=== PATIENT | female | born 1950 | race Caucasian/White ===

== ENCOUNTER 2018-02-09 20:23 | Emergency (ER) | payer MEDICARE ==
[2018-02-09 21:53] LABS: Hemoglobin 14.9 g/dL (12.0-16.0); Mean Corpuscular HGB CONC 33.4 g/dL (32.0-36.0); Mean Corpuscular Hemoglobin 29.3 pg (27.0-31.0); Mean Corpuscular Volume 87.9 fL (78.0-98.0); Mean Platelet Volume 6.9 fL (7.4-10.4); Platelet Count 347 thou/uL (130-400); RBC Distribution Width 12.5 % (11.5-14.5); Red Blood Cell (RBC) Count 5.07 mill/uL (4.20-5.40); White Blood Cell (WBC) Count 17.2 thou/uL (4.8-10.8)
[2018-02-09 21:54] LABS: Band 6 % (5-11); Lymphocytes 2 % (21-51); MDiff Complete? YES; Monocytes 8 % (0-10); Neutrophil 84 % (42-75); PLT Morphology Comment Appears Adequate
--- NOTE | 2018-02-09 22:06 | RAD ---
RADIOGRAPH CHEST 1 VIEW: 02/09/18 HISTORY: 67-year-old female with abnormal breath sounds: Left lower lobe crackles. Dyspnea. FINDINGS: There is no air space density or pulmonary edema. The lateral costophrenic angles are sharp. This st udy is labeled as supine, which would make it insensitive for pneumothorax detection. IMPRESSION: No acute pulmonary findings. zak [] POS: [facility]
--- NOTE | 2018-02-09 22:09 | RAD ---
RADIOGRAPH PELVIS ONE VIEW: 02/09/18 HISTORY: 67-year-old female status post acute pelvic traumatic injury from fall. FINDINGS: No displaced fracture is identified. However, the diffuse osteopenia and overlying bowel gas and stoo l could obscure a fracture, especially involving the sacrum. There is no dislocation of the hips. IMPRESSION: No fracture identified. POS: [facility]
[2018-02-09 22:10] LABS: Bilirubin Small (Negative); Blood, Urine Moderate (Negative); Clarity CLEAR (Clear); Glucose, Urine (Dipstick) 100 mg/dL (Negative); Leukocyte Negative (Negative); Nitrite Negative (Negative); Protein, Urine (Dipstick) 100 mg/dL (Neg-Trace); Specific Gravity, Urine 1.034 (1.002-1.036); pH, Urine 5.5 (5.0-9.0)
[2018-02-09 22:12] LABS: INR-International Normal Ratio 1.1; PTT 26.9 SEC (22.9-36.1); Prothrombin Time 13.8 SEC (12.0-14.7)
--- NOTE | 2018-02-09 22:14 | CT ---
CT OF CERVICAL SPINE PERFORMED WITHOUT CONTRAST ENHANCEMENT: 02/09/18 HISTORY: Neck pain status post fall. FINDINGS: The vertebral bodies are normal in height. There is disc narrowing at C5-6 and C6-7. Very minimal ant erolisthesis of C5 on C6 is present. There are degenerative facet changes noted. There is no significant canal stenosis and there is no CT evidence of fracture. There are emphysemato us appearing lung changes. IMPRESSION: No CT evidence of fracture of the cervical spine. POS: [facility]
[2018-02-09 22:18] LABS: Bacteria/HPF None Seen HPF (None Seen); RBC/HPF 0-3 HPF (0-3)
[2018-02-09 22:20] LABS: Pathc Cast-AUWi Flag 7.55 (0-2.49)
[2018-02-09 22:27] LABS: Hyaline Casts/LPF 4-6 HYALINE CAST LPF (0-3 Hyaline)
[2018-02-09 22:37] LABS: ALT (SGPT) 23 U/L (8-55); AST (SGOT) 28 U/L (5-34); Albumin 3.9 g/dL (3.4-4.8); Alkaline Phosphatase 60 U/L (40-150); Anion Gap 14 mmol/L (10-20); BUN (Urea Nitrogen) 23 mg/dL (9.8-20.1); Bilirubin, Total 0.3 mg/dL (0.2-1.2); Calc. Creatinine Clearance 0 mL/min (70-130); Calcium 9.7 mg/dL (7.8-10.44); Carbon Dioxide 21 mmol/L (23-31); Chloride 102 mmol/L (98-107); Estimated GFR-MDRD 71; Globulin 3.8 g/dL (2.4-3.5); Glucose 126 mg/dL (80-115); Potassium 3.2 mmol/L (3.5-5.1); Protein, Total 7.7 g/dL (6.0-8.3); Sodium 134 mmol/L (136-145)
[2018-02-09] MEDS ORDERED: Potassium Chloride 40 MEQ in Sodium Chloride 0.9% 500 ML IVPB SCH (23:15)
--- NOTE | 2018-02-09 23:18 | CT ---
CT BRAIN NONCONTRAST: DATE: 02/09/18 TIME: 9:33 p.m. HISTORY: 67-year-old female status post acute head trauma from fall. COMPARISON: 11/04/16 FINDINGS: Again noted is the large, confluent region of encephalomalacia and gliosis involving the left lateral frontal and parietal lobes, consistent with a large old infarction in the left MCA territory. This i s contiguous with a moderate size left parasagittal region of encephalomalacia and gliosis representi ng an old infarction in the left MASOUD territory. There is a small to moderate sized patchy region of right lower anterolateral frontal encephalomalaci a and gliosis, consistent with an old infarction in the right MCA territory. There is left sided Wallerian degeneration of the brainstem associated with the large left MCA territ ory infarction. There is a tiny old lacunar infarction involving the body of the right caudate nucleu s, which is not definitely identified on the previous CT. There is a small region of encephalomalacia and gliosis in the right temporoparietal junction laterally, consistent with a small old infarction in the right MCA territory. There is a small to moderate sized patchy region of encephalomalacia and gliosis involving the left o ccipital lobe contiguous with posteromedial left temporal lobe, consistent with an old infarction in the left [employer] territory. There is no acute intra-axial or extra-axial hemorrhage. No mass effect, midline shift or extra-axial fluid collection. No acute calvarial fracture. IMPRESSION: 1. No acute intracranial findings. 2. Multiple old infarctions in multiple vascular territories (left middle cerebral artery, left posterior cerebral artery, left anterior cerebral artery, right middle cerebral artery. 3. The largest is a large old infarction in the left middle cerebral artery territory, with asso ciated Wallerian degeneration of the left side of the brainstem. DENICE Gan POS: [facility]
[2018-02-09] MEDS ORDERED: Potassium Chloride 20 MEQ TAB ONE (23:49)
== END 2018-02-10 00:17 | disposition home or self-care (01) ==
LOC: ERS 20:23
DX: E87.6 Hypokalemia (principal); D72.829 Elevated white blood cell count, unspecified; R79.89 Other specified abnormal findings of blood chemistry; J44.9 Chronic obstructive pulmonary disease, unspecified; Z87.891 Personal history of nicotine dependence; Z86.73 Personal history of transient ischemic attack (TIA), and cerebral infarction without residual deficits
CPT/HCPCS: 51701; 70450; 71045; 72125; 72170; 80053; 81003; 81015; 83880; 84484; 85025; 85610; 85730; 87804; 93005; 96365; A4353; J3480; J7050

== ENCOUNTER 2018-05-31 17:47 | Inpatient (IN) | payer MEDICARE ==
[~2018-05-31 17:47] MED LIST: ISOVUE-370 76%-LOCM 1 ML ONE; Iopamidol 370 76% 50 ML VIAL FS ONE; PHENYLEPHRINE-NS 100 MCG/ML 10 ML SYRINGE ONE; Rocuronium Bromide 10 MG/ML (10ML VIAL) ONE; ePHEDrine 50 MG/ML VIAL ONE
[2018-05-31 18:06] LABS: #Basophils 0.1 thou/uL (0.0-0.2); #Eosinphils 0.4 thou/uL (0.0-0.7); #Lymphocytes 3.5 thou/uL (1.20-3.40); #Monocytes 0.9 thou/uL (0.11-0.59); #Neutrophils 9.1 thou/uL (1.40-6.50); %Basophils 0.6 % (0.0-1.0); %Lymphocytes 24.9 % (21.0-51.0); %Monocytes 6.1 % (0.0-10.0); %Neutrophils 65.5 % (42.0-75.0); Hemoglobin 15.6 g/dL (12.0-16.0); Mean Corpuscular HGB CONC 32.4 g/dL (32.0-36.0); Mean Corpuscular Hemoglobin 29.4 pg (27.0-31.0); Mean Corpuscular Volume 90.6 fL (78.0-98.0); Mean Platelet Volume 6.6 fL (7.4-10.4); Platelet Count 445 thou/uL (130-400); RBC Distribution Width 12.9 % (11.5-14.5); Red Blood Cell (RBC) Count 5.33 mill/uL (4.20-5.40); White Blood Cell (WBC) Count 13.9 thou/uL (4.8-10.8)
[2018-05-31 18:12] LABS: PTT 24.7 SEC (22.9-36.1); Prothrombin Time 13.2 SEC (12.0-14.7)
[2018-05-31] MEDS ORDERED: Adenosine 6 MG/2 ML VIAL ONE (18:17)
[2018-05-31 18:27] LABS: ALT (SGPT) 18 U/L (8-55); AST (SGOT) 18 U/L (5-34); Albumin 4.1 g/dL (3.4-4.8); Alkaline Phosphatase 73 U/L (40-150); Anion Gap 15 mmol/L (10-20); BUN (Urea Nitrogen) 19 mg/dL (9.8-20.1); Bilirubin, Total 0.3 mg/dL (0.2-1.2); CK (CPK) 66 U/L (29-168); Calc. Creatinine Clearance 0 mL/min (70-130); Calcium 9.8 mg/dL (7.8-10.44); Carbon Dioxide 23 mmol/L (23-31); Chloride 105 mmol/L (98-107); Estimated GFR-MDRD 66; Globulin 3.5 g/dL (2.4-3.5); Glucose 132 mg/dL (80-115); Potassium 4.3 mmol/L (3.5-5.1); Protein, Total 7.6 g/dL (6.0-8.3); Sodium 139 mmol/L (136-145)
[2018-05-31] MEDS ORDERED: Rocuronium Bromide 10 MG/ML (10ML VIAL) ONE ×2 (18:29→18:30)
[2018-05-31] MEDS ORDERED: Ketamine 50 MG/ML (10ML VIAL) ONE (18:36)
[2018-05-31 18:51] LABS: Bilirubin Negative (Negative); Blood, Urine Negative (Negative); Clarity CLEAR (Clear); Glucose, Urine (Dipstick) Negative (Negative); Leukocyte Negative (Negative); Nitrite Negative (Negative); Protein, Urine (Dipstick) Negative (Neg-Trace); Urobilinogen 0.2 mg/dL (0.2-1.0)
[2018-05-31 18:55] LABS: Specific Gravity, Urine 1.055 (1.002-1.036)
--- NOTE | 2018-05-31 18:56 | CT ---
CT HEAD NONCONTRAST: History: Altered mental status. Eye deviation. Comparison: 02-09-18 FINDINGS: No evidence of acute intracranial hemorrhage. Old left MCA infarct, old right frontal infarct, and pr ominent ischemic small vessel disease are similar in appearance to the prior study. No mass effect or shift of midline structures. IMPRESSION: 1. Old infarction with chronic type findings are stable. No acute intracranial abnormalities are demo nstrated. Findings were called to Dr. Whitaker in the Emergency Department at 1802 hours. Code CR POS: [facility]
[2018-05-31] MEDS ORDERED: Fentanyl 100 MCG/2 ML VIAL ONE (19:00)
--- NOTE | 2018-05-31 19:27 | CT ---
CT ARTERIOGRAM NECK WITH IV CONTRAST AND 3D MIP IMAGING CT ARTERIOGRAM HEAD WITH IV CONTRAST AND 3D MIP IMAGING CT BRAIN WITH IV CONTRAST: History: Altered mental status. Right eye deviation. Comparison: 12-02-16 FINDINGS: There is abrupt termination of contrast flow within the M1 segment of the right middle cerebral arter y. Contrast within the more peripheral arterial branches is likely via collateral flow. Good flow int o the anterior and posterior cerebral systems. [place] is intact. Normal branching of the great vessels at the aortic arch with aortic calcification. Calcification at each carotid bifurcation with approximately 50% stenosis in the proximal left ICA and no significant stenosis on the right. Old left MCA infarct and prominent chronic ischemic small vessel disease are again demonstrated. No e nhancing masses are evident. IMPRESSION: 1. Occlusion of the right MCA M1 segment with collateral flow peripherally. 2. Atherosclerosis with mild stenosis of the proximal left internal carotid artery. Findings were called to Dr. Whitaker in the Emergency Department at 1817 hours. Code CR POS: [facility]
[2018-05-31] MEDS ORDERED: Heparin 10,000 UNITS/1 ML VIAL ONE (19:35)
[2018-05-31] MEDS ORDERED: Midazolam HCl 2 mg/2 ml Vial ONE (19:45)
--- NOTE | 2018-05-31 19:51 | PRG ---
DATE OF SERVICE: SUBJECTIVE: Ms. Hawk is a 67-year-old female with history of prior CVA. She presented today to the emergency department with left hemiparesis and altered mental status. She subsequently became less responsive and hemodynamically unstable requiring intubation.She had a noncontrast head CT performed, which was negative for hemorrhage. She had a CT angiogram performed, which revealed occlusion of the right middle cerebral artery at the M1 division. She is approximately 3 hours out from onset. This was apparently witnessed by her daughter. The ER doctor did not feel she was candidate for tPA. I have activated the director of laboratory operations team and we are now awaiting arrival to the angiogram suite to perform angiography with potential for mechanical thrombectomy. Job ID: [id number] MTDD
--- NOTE | 2018-05-31 20:29 | RAD ---
CHEST ONE VIEW: History: Intubation. Comparison: 02-09-18, 05-31-18 FINDINGS: Cardiac silhouette is magnified by projection. Pulmonary vasculature is upper limits of normal. Media stinum is midline. The tip of an endotracheal catheter overlies the thoracic inlet. Nasogastric tube now descends to the abdomen off the inferior margin of the image. No evidence of pneumothorax. Defibr illator pads remain over the right upper chest. IMPRESSION: Endotracheal catheter is in good radiographic position. POS: [facility]
[2018-05-31] MEDS ORDERED: Mag-Al 1200 mg/1200 mg/30 ML UDCUP PO PRN (20:31)
[2018-05-31] MEDS ORDERED: Labetalol HCl 100 MG/20 ML VIAL SLOW IVP PRN (20:31)
[2018-05-31] MEDS ORDERED: niCARdipine HCl 25 MG in Sodium Chloride 0.9% 250 ML 240 ML IVPB PRN (20:31)
[2018-05-31] MEDS ORDERED: Acetaminophen 325 MG TAB PO PRN (20:31)
[2018-05-31 21:46] LABS: Actual Bicarbonate (HCO3a) 20.5 mEq/L (22-28); Base Excess (BEa) -4.6 mEq/L (-2.0 to +3.0); Calcium, Ionized 1.08 mmol/L (1.12-1.30); Hemoglobin (Hb) 14.5 g/dL (12.0-16.0); O2 Tension (PaO2) 99.1 mmHg (> 80.0); Potassium - ABG Lab 3.56 mmol/L (3.70-5.30); pH, Arterial 7.35 (7.35-7.45)
[2018-05-31 21:49] LABS: Puncture Site LRA
[2018-06-01 06:39] LABS: Cardiac Risk 3.4 (Less than 4.5)
[2018-06-01] MEDS: Atorvastatin Calcium 40 MG TAB PO SCH ×2 (07:36→21:42)
[2018-06-01] MEDS: Communication Order-Pharmacy FS SCH ×2 (07:36→21:37)
[2018-06-01] MEDS ORDERED: Aspirin 325 mg Enteric Coated Tablet PO SCH ×2 (09:00→21:00)
[2018-06-01] MEDS ORDERED: Aspirin 300 MG Suppository PR SCH ×2 (09:00→21:00)
--- NOTE | 2018-06-01 09:11 | CT ---
PRELIMINARY REPORT/[facility]/EMERGENTY AFTER-HOURS PROCEDURE Addendum created by David Castro MD on 06/01/2018 3:54 AM Central Time ([place] & [place]) THIS REPORT CONTAINS FINDINGS THAT MAY BE CRITICAL TO PATIENT CARE. The findings were verbally commun icated via telephone conference with AZUCENA Paredes at 3:53 AM CDT on 06/01/2018. The findings w ere acknowledged and understood. Initial Report created on 06/01/2018 3:48 AM Central Time ([place] & [place]) CT Head Without Contrast EXAM DATE/TIME: 06/01/2018 3:30 AM CLINICAL HISTORY: 67 years old, female; Screening exam; Prior surgery; Surgery date: Post-operative (0-2 days); Surgery type: S/P thrombectomy TECHNIQUE: Imaging protocol: Axial computed tomography images of the head/brain without contrast. COMPARISON: CT Brain WO Con 05/31/2018 5:59 PM FINDINGS: Brain: There is a new intraparenchymal hemorrhage centered in the left thalamus which measures 1.2 x 3.4 cm. There is an old infarct in the left frontal, temporal and parietal lobes. There is an old inf arct in the right frontal lobe and another smaller infarct in the right parietal lobe. Age appropriat e atrophy and small vessel ischemic change. Midline shift: No midline shift or extra-axial fluid collections. Ventricles: There is mild effacement of the right lateral ventricle. Bones/joints: Unremarkable. No acute fracture. Sinuses: Visualized sinuses are unremarkable. No acute sinusitis. Mastoid air cells: Visualized mastoid air cells are unremarkable. No mastoid effusion. Soft tissues: Unremarkable. Vasculature: Carotid and vertebral artery atherosclerotic calcification. IMPRESSION: New intraparenchymal hemorrhage within the right thalamus. Old infarct in the left MCA distribution and smaller infarcts in the right frontal and parietal lobes . Thank you for allowing us to participate in the care of your patient. Dictated and Authenticated by: David Castro MD 06/01/2018 3:48 AM Central Time ([place] & [place]) FINAL REPORT EMERGENCY AFTER HOURS CT BRAIN WITHOUT CONTRAST: Date: 06/01/18 FINDINGS/IMPRESSION: I agree with the findings and impression given in the preliminary report per [facility] physician. There is a new right thalamic hemorrhage. The other findings are stable. POS: [facility]
--- NOTE | 2018-06-01 09:41 | CON ---
DATE OF CONSULTATION: REASON FOR CONSULTATION: Consultation for medical management. HISTORY OF PRESENT ILLNESS: The patient is in Critical Care Unit on a ventilator. She apparently developed neurological symptoms and fell to the floor. She had a stroke 2 years ago with right hemiplegia and aphasia. The patient was brought to the emergency room. A CT angio of the head revealed a right middle cerebral artery clot. She underwent clot removal, placed on the ventilator, and subsequently moved to the intensive care unit. There is no H and P on the chart. There are no informants available at this time. PAST MEDICAL HISTORY: Pertinent for a CVA 2 years ago with resulting right hemiplegia and aphasia. She has a history of coronary artery disease and tobacco usage in the past. She has chronic obstructive pulmonary disease. PAST SURGICAL HISTORY: Appendectomy, cholecystectomy, feeding tube placement in the past, which was removed, and appendectomy in the past. CURRENT MEDICATIONS: Unavailable. ALLERGIES: HYDROCODONE AND PENICILLINS. SOCIAL HISTORY: She was a 2 pack a day smoker for 40 years. No alcohol. The patient previously worked as a cross country truck driver. She is currently and has 3 adult children. FAMILY HISTORY: Pertinent for coronary artery disease. REVIEW OF SYSTEMS: Unavailable as patient is intubated, sedated and nonresponsive. PHYSICAL EXAMINATION: VITAL SIGNS: Current vital signs, blood pressure 116/60, pulse 78, respirations 17. HEENT: Examination of the head, eyes, ears, nose, and throat; pupils are reactive bilaterally. Negative doll's eyes. Sclerae white. Tympanic membranes clear. Nose is clear. Oral examination precluded by the presence of tube, etc. NECK: No jugular venous distention, adenopathy or thyromegaly. CHEST: Clear to auscultation and percussion. HEART: Regular rate and rhythm. No murmurs or gallops. ABDOMEN: Soft. Bowel sounds are normal. There is no hepatosplenomegaly. No mass. No rebound or bruits. EXTREMITIES: Reveal no cyanosis, clubbing, or edema. PULSES: Carotid, radial, femoral, and dorsalis pedis pulses intact and symmetric. SKIN: Warm and dry. HEME AND LYMPH: No tender or swollen lymph nodes in the axilla, inguinal or cervical area. NEUROLOGICAL: Deep tendon reflexes absent. There is residual tone on the left side. The right side appears to be more flaccid. Plantar response was neutral. DIAGNOSTIC STUDIES: Chest x-ray, some hyperinflation. No cardiomegaly, CHF, or infiltrate. ET tube above the ruslan. Reviewed by me. EKG; wide QRS tachycardia, right bundle branch block pattern, sinus rhythm, reviewed by me. CT scan of the brain followup reveals an old large right middle cerebral artery infarct, what appears to be a more recent left middle cerebral artery infarct with hemorrhage in the thalamus. LABORATORY DATA: CBC; white count 13.9, hemoglobin 15.6, platelet count 445,000. INR 1.0. Comprehensive metabolic profile normal except for blood sugar 132. Blood gas, pH 7.35, CO2 38, O2 99 on PEEP of 5.0, O2 60%. ADMITTING DIAGNOSES: Right middle cerebral artery thrombosis, acute cerebrovascular accident with evolutionary hemorrhage status post clot removal, acute respiratory failure with hypoxia, vent dependent, history of old stroke with right hemiplegia and aphasia, coronary artery disease, and chronic obstructive pulmonary disease. Thank you for the consult. We will follow with you. Avoid antiplatelet, etc. due to hemorrhagic conversion. The patient is vent dependent. We will discuss with pipe smoking machine offbearer. Job ID: [id number]
[2018-06-01 10:13] LABS: Anion Gap 18 mmol/L (10-20); BUN (Urea Nitrogen) 15 mg/dL (9.8-20.1); Calc. Creatinine Clearance 77 mL/min (70-130); Calcium 8.6 mg/dL (7.8-10.44); Carbon Dioxide 15 mmol/L (23-31); Chloride 110 mmol/L (98-107); Estimated GFR-MDRD 79; Glucose 129 mg/dL (80-115); Potassium 4.3 mmol/L (3.5-5.1); Sodium 139 mmol/L (136-145)
[2018-06-01] MEDS: Sodium Chloride 0.9% 1,000 ML IV SCH (17:00)
--- NOTE | 2018-06-01 17:48 | CON ---
DATE OF CONSULTATION: 06/01/2018 CONSULTING PHYSICIAN: Dr. Donato. IMPRESSION: 1. New onset right MCA stroke. 2. Prior left middle cerebral artery stroke with expressive aphasia and right hemiparesis. 3. Chronic obstructive pulmonary disease. PLAN: Continue supportive measures for now until the family makes a decision on long-term care. HISTORY OF PRESENT ILLNESS: Ms. Hawk is a 67-year-old woman, who suffered a stroke two years ago resulting in right hemiparesis and expressive aphasia. She had good comprehension according to the family. She went to rehab for an interval of time and her PEG tube was removed. She was at home and maintaining prior to development of a new onset of left-sided weakness. She came in and her CTA revealed evidence of 100% occlusion of the right MCA branch. Initial CT scan of the brain showed old evidence of ischemic injury involving the left MCA, right frontal, and parietal region with small vessel ischemic changes. A followup CT scan of the brain shows an increased amount of edema in the posterior parietal region on the right as well as old damage frontally. The patient has been on ventilatory support. She is not on any sedation and remains quite lethargic. PAST MEDICAL HISTORY: As listed above. ALLERGIES: NONE REPORTED. SOCIAL HISTORY: No tobacco or alcohol use. FAMILY HISTORY: Noncontributory. REVIEW OF SYSTEMS: Not obtainable due to her comatose state. PHYSICAL EXAMINATION: GENERAL: She is a well-nourished elderly woman, on ventilatory support. VITAL SIGNS: Blood pressure 120/64, pulse 74, respirations 12, saturations 100% . HEENT: Pupils are equal. Eyes are conjugate. Conjunctivae are clear. NECK: Supple. No lymphadenopathy. EXTREMITIES: No cyanosis. NEUROLOGIC: She is deeply lethargic. She would not follow any commands. I could not get her to maintain any eye opening. Tone was relatively increased on the right compared to the left. No abnormal movements were seen. LABORATORY DATA: EKG shows a sinus rhythm. SUMMARY: This is an unfortunate woman, who had a prior stroke involving significant portion of the left hemisphere with new significant injury involving the right MCA territory. The combination of injury will likely result in significant disability. She will probably be bedfast and require a feeding tube if the family wants to proceed with this. She is going to probably have difficulty maintaining a clear airway and would require tracheostomy. I have expressed these issues to the daughter and brother and they will discuss the situation further at the time. Job ID: [id number] MTDD
[2018-06-01] MEDS ORDERED: Adenosine 6 MG/2 ML VIAL ONE ×2 (19:36→19:45)
[2018-06-01] MEDS ORDERED: Adenosine 6 MG/2 ML VIAL IVP SCH ×2 (20:00)
--- NOTE | 2018-06-01 20:19 | CON ---
DATE OF CONSULTATION: HISTORY OF PRESENT ILLNESS: Renetta Hawk is a 67-year-old female, who presented with thrombotic CVA and subsequently went to the collaborative physician with Dr. Donato. This morning, she has a small thalamic hemorrhage. She is mechanically ventilated. She is not sedated and not awake. Her family tells me that she had a stroke 2 years ago. At that time, she was made a DNR, anticipating that she would not survive the stroke, but she did survive to go home and become semi-functional. She has been hemiplegic on the right and unable to speak, but actually was able to communicate by pointing with her son that she wanted to go to the drug store and buy lottery tickets a few days ago. Code status was reversed and she survived, but her family says she is very set in her ways and probably and would not want to even be in the hospital at this point. They requested that she will be made a do not resuscitate patient again, they want to continue current supportive care measures. PAST MEDICAL HISTORY: Remarkable for reportedly for coronary artery disease and COPD. PAST SURGICAL HISTORY: She has a surgical history of an appendectomy, cholecystectomy, and a PEG in the past. ALLERGIES: SHE REPORTS THAT CODEINE AND HYDROCODONE ACCORDING TO FAMILY MAKE HER NAUSEATED. SHE REPORTS PENICILLIN ALLERGY. 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 FAMILY HISTORY: Positive for vascular disease. REVIEW OF SYSTEMS: Not obtainable. PHYSICAL EXAMINATION: On exam, she is spontaneously moving her left side and also moves left lower extremity with pain for me. VITAL SIGNS: Respiratory rate was 14, heart rate is in 70s, and blood pressure 118/67. HEENT: Pupils reactive. Sclerae are anicteric. She is orally intubated. NECK: Without lymphadenopathy. LUNGS: Clear. HEART: Regular rhythm. S1 and S2 are normal. ABDOMEN: Soft and nontender. EXTREMITIES: Without clubbing, cyanosis, or edema. She is hemiplegic on the right. IMAGING STUDIES: Chest x-ray done yesterday afternoon showed no infiltrates. LABORATORY DATA: White count 13.9 yesterday, hemoglobin 15.6, and platelets 445. Sodium 139, potassium 4.3, chloride 110, bicarb 15, BUN 15, and creatinine 0.73. A pH of 7.35, CO2 of 38, pO2 of 99. IMPRESSION: 1. Respiratory failure secondary to cerebrovascular accident. 2. Mild metabolic acidosis. 3. History of past cerebrovascular accident with hemiplegia and aphasia. 4. History of coronary artery disease. 5. Do not resuscitate status. 6. Status post attempted clot retrieval, now with thalamic hemorrhage. 7. [id number] history of smoking. She is not bronchospastic at this point in time. I will be happy to follow the other physicians. This is a 70-minute consult, 50% of the time spent on the unit in coordinating care. Job ID: [id number]
[2018-06-01 20:54] VITALS: BMI 25.1
[2018-06-01] MEDS ORDERED: Enoxaparin Sodium 40 MG/0.4 ML SYRINGE SC SCH (21:00)
[2018-06-02 05:38] LABS: Anion Gap 10 mmol/L (10-20); BUN (Urea Nitrogen) 13 mg/dL (9.8-20.1); Calc. Creatinine Clearance 76 mL/min (70-130); Calcium 8.4 mg/dL (7.8-10.44); Carbon Dioxide 25 mmol/L (23-31); Chloride 111 mmol/L (98-107); Estimated GFR-MDRD 82; Glucose 132 mg/dL (80-115); Potassium 3.7 mmol/L (3.5-5.1); Sodium 142 mmol/L (136-145)
[2018-06-02 05:45] LABS: Band 6 % (5-11); Lymphocytes 6 % (21-51); MDiff Complete? YES; Mean Corpuscular HGB CONC 32.7 g/dL (32.0-36.0); Mean Corpuscular Hemoglobin 29.5 pg (27.0-31.0); Mean Corpuscular Volume 90.4 fL (78.0-98.0); Mean Platelet Volume 6.8 fL (7.4-10.4); Monocytes 4 % (0-10); Neutrophil 84 % (42-75); Platelet Count 315 thou/uL (130-400); Platelet Morphology Comment Appears Adequate; Red Blood Cell (RBC) Count 4.07 mill/uL (4.20-5.40); White Blood Cell (WBC) Count 19.8 thou/uL (4.8-10.8)
[2018-06-02] MEDS: Sodium Chloride 0.9% 1,000 ML IV SCH (06:34)
[2018-06-02 08:08] LABS: Actual Bicarbonate (HCO3a) 23.4 mEq/L (22-28); Base Excess (BEa) -0.4 mEq/L (-2.0 to +3.0); CO2 Tension 35.5 mmHg (35.0-45.0); Calcium, Ionized 1.17 mmol/L (1.12-1.30); Carboxyhemoglobin (COHb) 0.5 gm% (0.0-3.0); Hemoglobin (Hb) 11.7 g/dL (12.0-16.0); O2 Tension (PaO2) 88.2 mmHg (> 80.0); Potassium - ABG Lab 3.46 mmol/L (3.70-5.30); pH, Arterial 7.44 (7.35-7.45)
[2018-06-02 08:10] LABS: ALV-art Gradient 152.625 (0-20); Puncture Site LRA
--- NOTE | 2018-06-02 08:53 | RAD ---
CHEST 1 VIEW: INDICATION: Intubation. COMPARISON: Prior exam dated 05/31/2018. IMPRESSION: The patient is heavily rotated to the left limiting exam. ET tube and gastric catheter appear unchan ged. No definite pneumothorax is evident. Mild cardiomegaly persists. POS: [facility]
--- NOTE | 2018-06-02 16:00 | RAD ---
FAP view chest chest pain Comparison radiographs of chest or from 02/09/2018. Exam was obtained on 05/31/2018. It was submitted for interpretation on the afternoon of 06/02/2018. AP view chest obtained. EKG leads seen over the chest. There is a defibrillator pad over her right ch est. There is a radiopaque metallic density cross beneath the defibrillator pad. Fractured right clavicle is seen. The lungs are well aerated. No evidence of acute intrathoracic abnormality seen. IMPRESSION: Fractured right clavicle. Findings were called to patient's nurse Leddi at 3:53 PM on 06/02/2018. Code CR
--- NOTE | 2018-06-02 16:02 | PRG ---
DATE OF SERVICE: 06/02/2018 Ms. Hawk is a 67-year-old female with a history of prior left middle cerebral artery distribution stroke. Most recently, she presented with symptoms of right middle cerebral artery distribution stroke. She underwent mechanical thrombectomy with jainism of flow. Despite those efforts, she did have a MCA and MASOUD infarct. She has had a small degree of hemorrhagic transformation along the posterior aspect of the middle cerebral artery distribution. At the time of her hospital presentation in the ER, she became unresponsive, requiring intubation. She has not improved clinically since that time. She does open her eyes periodically. She does not exhibit purposeful movements nor does she follow commands. Given her preexisting comorbidities as well as the new stroke, her overall clinical picture is a grim one. I met with family members today and discussed with them all the imaging, her diagnoses, and what I believe to be a poor prognosis for her. They are inclined to move forward with withdrawal of care. They are waiting on one additional family member to come in from [place]. Once that family member arrives, we will move towards comfort care measures. The patient is currently DNR. Job ID: [id number]
[2018-06-02] MEDS: Morphine 10 MG/ML VIAL SLOW IVP PRN ×3 (18:22→23:52)
--- NOTE | 2018-06-02 19:11 | PDOC.PN ---
- Subjective Encounter Start Date: 06/02/18 Encounter Start Time: 09:20 Pt seen for followup re: ischemic CVA. Intubated, unable to complete ROS. - Objective Resuscitation Status - Order Detail: 06/01/18 13:36 Resuscitation Status Routine Resuscitation Status: DNAR: NO Resuscitation Discussed with: children...pt was dnr with last stroke they want again MAR Reviewed: Yes Vital Signs & Weight: Vital Signs (12 hours) Temp Pulse Resp Pulse Ox 06/02/18 16:00 99.0 F 15 06/02/18 14:00 65 12 06/02/18 12:00 98.7 F 12 06/02/18 10:41 186 H 06/02/18 10:00 20 06/02/18 08:00 100.6 F H 61 12 99 Weight Admit Weight 147 lb 11.355 oz Weight 141 lb 12.116 oz Most Recent Monitor Data Heart Rate from ECG 84 NIBP 130/74 NIBP BP-Mean 92 Respiration from ECG 22 SpO2 91 I&O: 06/01/18 06/02/18 06/03/18 06:59 06:59 06:59 Intake Total 159 2668.6 1253 Output Total 710 960 280 Balance -551 1708.6 973 Result Diagrams: 06/02/18 04:57 06/02/18 04:57 EKG Reviewed by me: Yes (Tele: NSR) Phys Exam - Physical Examination Intubated Pupils 3 mm lorna, sluggishly reactive to light ETT Respiratory: clear to auscultation bilateral Cardiovascular: RRR Gastrointestinal: soft No spontaneous limb movements Dx/Plan (1) Ischemic cerebrovascular accident (CVA) Code(s): I63.9 - CEREBRAL INFARCTION, UNSPECIFIED Status: Acute Comment: s/ p thrombectomy (2) Intracranial bleed Code(s): I62.9 - NONTRAUMATIC INTRACRANIAL HEMORRHAGE, UNSPECIFIED Status: Acute Comment: avoid anticoagulants (3) HTN (hypertension) Code(s): I10 - ESSENTIAL (PRIMARY) HYPERTENSION Status: Chronic Comment: controlled - Plan plan discussed w/ family * . Review of Systems - Medications/Allergies Allergies/Adverse Reactions: Allergies Allergy/AdvReac Type Severity Reaction Status Date / Time codeine Allergy Verified 05/31/18 21:30 Penicillins Allergy Verified 05/31/18 21:30 Medications: Current Medications Acetaminophen (Tylenol) 650 mg PO Q6H PRN PRN Reason: Headache/Fever/Mild Pain (1-3) Morphine Sulfate (Morphine) 10 mg SLOW IVP Q1HR PRN PRN Reason: Congestion Last Admin: 06/02/18 18:22 Dose: 10 mg
[2018-06-02] MEDS ORDERED: Scopolamine 1.5 mg/72 hour Patch TD SCH (22:00)
[2018-06-03] MEDS: Morphine 10 MG/ML VIAL SLOW IVP PRN ×4 (01:04→17:26)
--- NOTE | 2018-06-03 10:04 | PRG ---
DATE OF SERVICE: 06/02/2018 SUBJECTIVE: Ms. Hawk is unchanged. She is not sedated, not responsive. OBJECTIVE: VITAL SIGNS: Stable. LUNGS: Clear. HEART: Regular rhythm. S1 and S2 are normal. She is having intermittent SVT/rapid atrial fibrillation. ABDOMEN: Soft without guarding. EXTREMITIES: Without change. LABORATORY DATA: White count is 19.8, hemoglobin 12.0, platelets 315. Sodium 142, potassium 3.7, chloride 111, bicarb 25, BUN 13, and creatinine 0.7. IMPRESSION: Cerebrovascular accident, 2 years ago followed by a cerebrovascular accident this admission with some thalamic hemorrhage. She is still not improving. Family wants to withdraw care. I would not disagree with this decision. Once all family is arrive, she will be extubated and transferred to the floor for comfort care. If she remains stable, she can probably go to inpatient hospice. I would not anticipate survival longer than a few days. Job ID: [id number]
[2018-06-03] MEDS ORDERED: Acetaminophen 650 MG Suppository PR PRN (17:18)
--- NOTE | 2018-06-03 17:40 | PDOC.PN ---
- Subjective Encounter Start Date: 06/03/18 Encounter Start Time: 10:40 Pt seen for followup re: ischemic CVA. Pt is unresponsive, could not complete ROS. - Objective Resuscitation Status - Order Detail: 06/01/18 13:36 Resuscitation Status Routine Resuscitation Status: DNAR: NO Resuscitation Discussed with: children...pt was dnr with last stroke they want again MAR Reviewed: Yes Vital Signs & Weight: Vital Signs (12 hours) Temp Pulse Resp BP 06/03/18 08:00 101.4 F H 120 H 20 90/52 L Weight Admit Weight 147 lb 11.355 oz Weight 141 lb 12.116 oz Most Recent Monitor Data Heart Rate from ECG 84 NIBP 130/74 NIBP BP-Mean 92 Respiration from ECG 22 SpO2 91 I&O: 06/02/18 06/03/18 06/04/18 06:59 06:59 06:59 Intake Total 2668.6 1253 Output Total 960 280 Balance 1708.6 973 Result Diagrams: 06/02/18 04:57 06/02/18 04:57 Additional Labs: Labs reviewed by me Phys Exam - Physical Examination Unresponsive HEENT: moist MMs Neck: no nodes Respiratory: clear to auscultation bilateral Cardiovascular: RRR Gastrointestinal: soft No spontaneous limb movements. Pupils sluggishly reactive Deviation from normal: Unable to assess Dx/Plan (1) Ischemic cerebrovascular accident (CVA) Code(s): I63.9 - CEREBRAL INFARCTION, UNSPECIFIED Status: Acute Comment: s/ p thrombectomy, pt extubated yesterday (2) Intracranial bleed Code(s): I62.9 - NONTRAUMATIC INTRACRANIAL HEMORRHAGE, UNSPECIFIED Status: Acute Comment: avoid anticoagulants (3) HTN (hypertension) Code(s): I10 - ESSENTIAL (PRIMARY) HYPERTENSION Status: Chronic Comment: controlled - Plan plan discussed w/ family * . Discussed with family. No active treatments at this time. family will likely choose hospice care. Review of Systems - Medications/Allergies Allergies/Adverse Reactions: Allergies Allergy/AdvReac Type Severity Reaction Status Date / Time codeine Allergy Verified 05/31/18 21:30 Penicillins Allergy Verified 05/31/18 21:30 Medications: Current Medications Acetaminophen (Tylenol) 650 mg PO Q6H PRN PRN Reason: Headache/Fever/Mild Pain (1-3) Acetaminophen (Tylenol) 650 mg NC Q4H PRN PRN Reason: Headache/Fever or Pain Last Admin: 06/03/18 17:26 Dose: 650 mg Morphine Sulfate (Morphine) 10 mg SLOW IVP Q1HR PRN PRN Reason: Congestion Last Admin: 06/03/18 17:26 Dose: 10 mg Scopolamine (Transderm Scop) 3 mg TD Q3D YOVANI Last Admin: 06/02/18 22:23 Dose: 3 mg
--- NOTE | 2018-06-04 06:41 | PRG ---
DATE OF SERVICE: 06/04/2018 SUBJECTIVE: Ms. Hawk is now resting comfortably in Oncology unit after having been transferred from the unit following extubation and decision by the family to move forward with withdrawal of care and medical management only. She is minimally to nonresponsive. PLAN: Plan will be ongoing comfort care measures. Job ID: [id number]
[2018-06-04 09:35] VITALS: BP 111/55; TEMP 103
--- NOTE | 2018-06-05 05:50 | DIS ---
DATE OF ADMISSION: 05/31/2018 DATE OF DISCHARGE: 06/04/2018 PRIMARY CARE PROVIDER: Unknown. DISCHARGE DIAGNOSES: 1. Ischemic cerebrovascular accident. 2. Right middle cerebral artery thrombosis. 3. Status post clot removal. 4. Evolutionary hemorrhage. 5. Acute hypoxic respiratory failure. CONDITION OF PATIENT ON THE DAY OF DISCHARGE: I assessed Ms. Hawk on the day of discharge. She is resting comfortably, surrounded by family members. She is unresponsive. DISCHARGE MEDICATIONS: As determined by hospice care service following transfer to hospice facility. CONSULTATIONS DURING THIS HOSPITALIZATION: [facility], Dr. Saleh; Pulmonary and Critical Care Medicine, Dr. Burks; Neurology Dr. Oneill. HOSPITAL COURSE: Ms. Hawk is a 67-year-old lady who was admitted to [facility] on May 31, 2018, by Dr. Milton Donato. She was found to have right middle cerebral artery thrombosis. She underwent clot removal. She had evolutionary hemorrhage. She was also intubated secondary to acute hypoxic respiratory failure. Hospitalist Service, Neurology Service, and Pulmonary and Critical Care Services were consulted. The patient was unresponsive following the procedure. After discussion between Pulmonary Medicine and family members, the patient's code status was changed to DNAR. Palliative Care Service was consulted. Following further discussions, the patient's family wished to provide her comfort measures only. All active treatments were stopped. Hospice Service was consulted. She is being discharged to [facility] for further management. DISCHARGE DESTINATION: [facility]. TOTAL AMOUNT OF TIME SPENT COORDINATING THIS DISCHARGE: 31 minutes. Job ID: [id number] MTDD
--- NOTE | 2018-06-05 21:51 | EKG ---
Test Reason : Blood Pressure : / mmHG Vent. Rate : 136 BPM Atrial Rate : 136 BPM P-R Int : 126 ms QRS Dur : 098 ms QT Int : 302 ms P-R-T Axes : 090 002 120 degrees QTc Int : 454 ms Sinus tachycardia T wave abnormality, consider lateral ischemia Abnormal ECG Confirmed by CHEIKH AGUIAR, SAMANTHA ([id number]), news editor SAMREEN WOODSON ([id number]) on 06/05/2018 9:51:28 PM Referred By: Confirmed By:SAMANTHA SALAMANCA MD
--- NOTE | 2018-06-05 21:52 | EKG ---
Test Reason : Blood Pressure : / mmHG Vent. Rate : 166 BPM Atrial Rate : 182 BPM P-R Int : 000 ms QRS Dur : 136 ms QT Int : 322 ms P-R-T Axes : 000 223 008 degrees QTc Int : 535 ms Poor data quality, interpretation may be adversely affected Wide QRS tachycardia Right bundle branch block Possible Lateral infarct , age undetermined Inferior infarct , age undetermined Abnormal ECG Confirmed by CHEIKH AGUIAR, SAMANTHA ([id number]), primer expeditor and drier SAMREEN WOODSON ([id number]) on 06/05/2018 9:51:30 PM Referred By: Confirmed By:SAMANTHA SALAMANCA MD
--- NOTE | 2018-06-05 21:52 | EKG ---
Test Reason : Blood Pressure : / mmHG Vent. Rate : 084 BPM Atrial Rate : 084 BPM P-R Int : 152 ms QRS Dur : 110 ms QT Int : 392 ms P-R-T Axes : 091 007 204 degrees QTc Int : 463 ms Sinus rhythm with Fusion complexes Septal infarct , age undetermined Abnormal ECG Confirmed by CHEIKH AGUIAR, SAMANTHA ([id number]), manuscript editor SAMREEN WOODSON ([id number]) on 06/05/2018 9:51:30 PM Referred By: Confirmed By:SAMANTHA SALAMANCA MD
--- NOTE | 2018-06-07 16:54 | EKG ---
Test Reason : Blood Pressure : / mmHG Vent. Rate : 088 BPM Atrial Rate : 088 BPM P-R Int : 144 ms QRS Dur : 106 ms QT Int : 420 ms P-R-T Axes : 065 -34 091 degrees QTc Int : 508 ms Normal sinus rhythm Left axis deviation Nonspecific T wave abnormality Prolonged QT Abnormal ECG When compared with ECG of 09-FEB-2018 21:15, Nonspecific T wave abnormality has replaced inverted T waves in Lateral leads Confirmed by NATY PLUMMER (2) on 06/07/2018 4:54:10 PM Referred By: BRAYDEN Confirmed By:NATY PLUMMER
--- NOTE | 2018-06-07 17:27 | EKG ---
Test Reason : Blood Pressure : / mmHG Vent. Rate : 196 BPM Atrial Rate : 196 BPM P-R Int : 000 ms QRS Dur : 134 ms QT Int : 232 ms P-R-T Axes : 000 237 060 degrees QTc Int : 419 ms Wide complex tachycardia Right bundle branch block Inferior infarct , age undetermined Abnormal ECG When compared with ECG of 31-MAY-2018 22:45, (Unconfirmed) Current undetermined rhythm precludes rhythm comparison, needs review Right bundle branch block is now Present Inferior infarct is now Present Confirmed by NATY PLUMMER (2) on 06/07/2018 5:27:25 PM Referred By: BRAYDEN Confirmed By:NATY PLUMMER
== END 2018-06-04 16:05 | disposition hospice, inpatient (51) | DRG 23 ==
LOC: ERS 17:47 → CCU 21:00 → ONC 06-02 18:46
PROVIDERS: ADMIT Neurological Surgery; ATTEND Internal Medicine
PROC: 03CG3ZZ Extirpation of Matter from Intracranial Artery, Percutaneous Approach (ICD-10-PCS; principal; 2018-05-31)
PROC: 5A1945Z Respiratory Ventilation, 24-96 Consecutive Hours (ICD-10-PCS; 2018-05-31)
PROC: 0BH17EZ Insertion of Endotracheal Airway into Trachea, Via Natural or Artificial Opening (ICD-10-PCS; 2018-05-31)
DX: I63.311 Cerebral infarction due to thrombosis of right middle cerebral artery (principal); J96.01 Acute respiratory failure with hypoxia; I61.9 Nontraumatic intracerebral hemorrhage, unspecified; G81.94 Hemiplegia, unspecified affecting left nondominant side; I69.351 Hemiplegia and hemiparesis following cerebral infarction affecting right dominant side; E87.2 Acidosis; I69.320 Aphasia following cerebral infarction; I25.10 Atherosclerotic heart disease of native coronary artery without angina pectoris; J44.9 Chronic obstructive pulmonary disease, unspecified; I10 Essential (primary) hypertension; Z66 Do not resuscitate; Z87.891 Personal history of nicotine dependence; Z88.5 Allergy status to narcotic agent; Z88.0 Allergy status to penicillin
CPT/HCPCS: 31500; 36415; 36416; 51702; 70450; 70496; 70498; 71045; 75902; 80048; 80053; 80061; 81003; 82550; 82805; 83690; 84484; 85007; 85025; 85027; 85610; 85730; 93005; 93010; 94003; 94640; 96361; 96374; 96375; C1757; C1769; C1887; J0153; J1644; J2250; J2270; J3010; J3490; J7050; J7620; Q9966; Q9967